=== PATIENT | female | born 1955 | race Caucasian/White ===

== ENCOUNTER 2018-10-21 08:21 | Day surgery (SDC) | payer MEDICARE, MEDICAID ==
[2018-10-21] MEDS ORDERED: PROPOFOL 20 ML (08:38)
[2018-10-21] MEDS ORDERED: ONDANSETRON 4 MG INJ IV (10:00)
[2018-10-21] MEDS ORDERED: EPHEDrine SULFATE 50 MG/5 ML SYG IV (10:00)
[2018-10-21] MEDS ORDERED: OXYCODONE/ACETAMINOPHEN (5/325) TAB PO ×2 (10:00)
[2018-10-21] MEDS ORDERED: FENTAnyl 50 MCG/ML VIAL IV ×3 (10:00)
[2018-10-21] MEDS ORDERED: DIPHENHYDRAMINE 50 MG INJ IV (10:00)
[2018-10-21] MEDS ORDERED: LABETALOL HCL 20MG INJ IV (10:00)
[2018-10-21] MEDS ORDERED: MEPERIDINE 25 MG INJ IV (10:00)
[2018-10-21] MEDS ORDERED: METOCLOPRAMIDE 10 MG INJ IV (10:00)
[2018-10-21] MEDS ORDERED: hydrALAzine 20 MG INJ IV (10:00)
[2018-10-21] MEDS ORDERED: MIDAZOLAM 1 MG/ML 2 ML INJ IV (10:00)
== END 2018-10-21 14:43 | disposition home or self-care (01) ==
LOC: GIL 08:21
DX: R19.4 Change in bowel habit (principal); I10 Essential (primary) hypertension; E11.9 Type 2 diabetes mellitus without complications
CPT/HCPCS: 45378; 82962